=== PATIENT | male | born 1955 | race Caucasian/White ===

== ENCOUNTER 2017-08-23 12:02 | Emergency (ER) | payer OTHER ==
--- NOTE | 2017-08-23 13:50 | EDPHY ---
H & P Time Seen by Provider: 08/23/17 12:07 HPI/ROS: CHIEF COMPLAINT: Right hip pain History by patient HISTORY OF PRESENT ILLNESS: 61-year-old man with a history of multiple back surgeries and fusions presents complaining of several weeks of right hip pain. Patient describes the pain both in his right buttock as well as his anterior hip and it is worse when he tries to lie flat or extend his leg or weight bear. Pain got especially worse 5-6 days ago when he went for an MRI of his back and on his way in parking lot he developed really severe pain which is exacerbated by having a lot on the MRI table. Patient has been on long-term pain medicines control by his pain management physician but has tapered down to 3 Vicodin a day approximately 6-8 weeks ago prior to the onset of this severe right hip pain. He denies any specific trauma to the hip. He states he has not been any steroids for his back. REVIEW OF SYSTEMS: As in HPI, and all other systems reviewed and are negative Smoking Status: Former smoker Physical Exam: General Appearance: Alert and uncomfortable appearing. Eyes: Pupils equal and round no injection. Musculoskeletal: Neck is supple and nontender. Back: Multiple surgical scars, no bony tenderness, no back tenderness, positive mild right buttock tenderness, negative straight leg test Extremities: Right hip with limited range of motion secondary to pain especially with internal-external rotation both passively and actively, full range of motion of right knee and ankle, DP pulse 2 +and equal bilaterally. Skin: No rashes or lesions except as described above. Constitutional: Initial Vital Signs Temperature (C) 37 C 08/23/17 12:14 Heart Rate 105 H 08/23/17 12:14 Respiratory Rate 20 08/23/17 12:14 Blood Pressure 142/100 H 08/23/17 12:14 O2 Sat (%) 91 L 08/23/17 12:14 O2 Delivery Mode Room Air Allergies/Adverse Reactions: meperidine HCl [From Demerol] Allergy (Verified 08/23/17 12:11) Home Medications: Medication Instructions Recorded Atorvastatin Calcium 08/23/17 GABAPENTIN 08/23/17 Losartan Potassium 08/23/17 Ranitidine HCl 08/23/17 Spironolactone 08/23/17 Tamsulosin HCl 08/23/17 MDM/Departure - MDM Imaging: Discussed imaging studies w/ call center associate Radiologist ED Course/Re-evaluation: 61-year-old man presents with severe right hip pain. X-ray reveals right greater than left avascular necrosis per the radiologist. This clearly explained the patient's symptoms. I discussed the diagnosis with the patient and with Dr. Cochran sales and marketing professional for orthopedics. He will see the patient in follow-up next week. Patient was given orthopedics contact information and will schedule appointment next week. - Depart Disposition: Home, Routine, Self-Care Clinical Impression: Avascular necrosis of bones of both hips Condition: Fair Instructions: Hip Pain (ED) Additional Instructions: You were seen by Dr. Karyn Welch today. Please follow up with Dr. Cochran or his partner next week to be seen for your avascular necrosis of your right and also left hip. Continue to take her pain medicines as needed. Return for any worsening or new concerns. Referrals: Paola Mcdowell MD [Primary Care Provider] - As per Instructions
[2017-08-23 14:45] VITALS: BP 141/89; PULSE 78; RESP 18; TEMP 98.2; O2SAT 92
== END 2017-08-23 14:45 | disposition home or self-care (01) ==
LOC: CED 12:02
DX: M87.9 Osteonecrosis, unspecified (principal); Z87.891 Personal history of nicotine dependence
CPT/HCPCS: 73502-PO

== ENCOUNTER 2017-10-17 14:58 | Inpatient (IN) | payer OTHER ==
[2017-10-17] MEDS ORDERED: ALTEPLASE 100 MG/100 ML VIAL IV ONE ×2 (15:15→15:37)
[2017-10-17] MEDS ORDERED: NS 1,000 ML IV ONE (15:16)
[2017-10-17] MEDS ORDERED: IOPAMIDOL (ISOVUE 370) 100 ML BTL IV ONE (15:17)
--- NOTE | 2017-10-17 15:20 | CPEKG ---
Heart Rate: 134 RR Interval: 448 P-R Interval: 96 QRSD Interval: 88 QT Interval: 304 QTC Interval: 454 P Gilsum: 58 QRS Gilsum: 65 T Wave Gilsum: -1 EKG Severity - ABNORMAL ECG - EKG Impression: SINUS TACHYCARDIA EKG Impression: NONSPECIFIC T ABNORMALITIES, INFERIOR LEADS Electronically Signed By: Elidia Corona 18-Oct-2017 14:15:10
--- NOTE | 2017-10-17 15:21 | EDPHY ---
H & P Stated Complaint: c/o confusion since 1200 today HPI/ROS: HPI CHIEF COMPLAINT: Confusion, Left facial droop, Left sided weakness. Last Seen normal at noon. HISTORY OF PRESENT ILLNESS: This patient is 61-year-old male, he presents to the emergency room by private vehicle with his for confusion. She noticed this onset at noon today during a phone call he did not sound right on the phone. He was acting confused. They 1st call their primary care doctor recommended him coming to the emergency room. At 3:00 p.m. he checked in to [facility] emergency room where I greeted him. Upon arrival to the emergency room I did Greet him in the ER room 1. He is noted to be tachycardic but not hypertensive. He has slurred speech on exam. He has a left-sided facial droop. He keeps his left fist in a clenched fist. He appears to be weak on left side. Upon arrival medially I called a stroke alert. TIME OF CVA ALERT: 1501PM Spoke with Dr. Mckeon with [facility]. She recommends CT head without contrast and then most likely tPA if there is no bleed. After tPA will then proceed back for CT angiogram head and neck. Initial NIHSS: 11 Past Medical History: Hypertension, hyperlipidemia, GERD, obesity. Previous stroke left-sided weakness in 2013, seizure, COPD Past Surgical History: No recent surgery. Social History: Lives locally. at bedside. Denies drugs alcohol tobacco. Family History: Noncontributory. ROS REVIEW OF SYSTEMS: A comprehensive 10 point review of systems is otherwise negative aside from elements mentioned in the history of present illness. Exam Constitutional confused, triage nursing summary reviewed, vital signs reviewed , awake/alert. Eyes normal conjunctivae and sclera, EOMI, PERRLA. HENT normal inspection, atraumatic, moist mucus membranes, no epistaxis, neck supple/ no meningismus, no raccoon eyes. Respiratory clear to auscultation bilaterally, normal breath sounds, no respiratory distress, no wheezing. Cardiovascular Tachycardic, regular rhythm, no murmur, no edema, distal pulses normal. Gastrointestinal soft, non-tender, no rebound, no guarding, normal bowel sounds, no distension, no pulsatile mass. Genitourinary no CVA tenderness. Musculoskeletal no midline vertebral tenderness, full range of motion, no calf swelling, no tenderness of extremities, no meningismus, good pulses, neurovascularly intact. Skin pink, warm, & dry, no rash, skin atraumatic. Neurologic awake, alert and oriented x 1, AAOx1, patient has a left-sided lower facial droop, additionally is confused and disoriented, additionally has left-sided upper extremity left lower extremity weakness, significant drift and drops to the bed. Also has left hand is clinched. He has dysarthria present. Otherwise cranial nerves are intact. He is not aphasic. He follows commands but needs repetitive questioning. Psychiatric normal mood/affect. Heme/Lymph/Immune no lymphadenopathy. Differential Diagnosis: Includes but is not limited to in a particular order acute stroke, ischemic stroke, hemorrhagic stroke, acute coronary syndrome, electrolyte disturbance, infection. Medical Decision Making: Stroke alert was called immediately when he arrived. [facility] Dr. Mckeon was consulted. Recommend CT head without and then tPA if no bleed. And then subsequent CT angiogram head and neck. Re-evaluation: 1505: I discussed this with at bedside about risk versus benefit of tPA. She is in agreement that we should give tPA. She understands the risks of doing so. 1525: Patient in CT Initial NIH stroke scale 11. Left-sided drift, dysarthria, facial droop, left sided weakness. 1550: Patient is back from CT. CT head without contrast shows no bleed. Will proceed with tPA. 1553: TPA as been ordered. Maximum dose patient weighs 134 kg. 9 mg bolus an 81 mg of Infusion. EKG interpretation by me on record in [facility] system. Impression time of EKG 15 19, sinus tachycardia rate of 134. I do not appreciate acute ST elevation. 1549: Patient's creatinine back 1.6. I did speak with Dr. Mckeon with [facility]. Still recommends CT angiogram head and neck. Will proceed with angiogram head and neck and hydrate with IV fluids. ED x-ray chest one view: Poor inspiratory effort. But no acute cardiopulmonary disease visualize. CT head without contrast called to me by Dr. Thor Tavera. Negative for bleed or Infarct. 1603: Spoke with Dr. Mcguire, who is the hospitalist on-call at this time. Accepts admission to the ICU at [facility]. 1604: This patient will need to be transferred by critical care status post tPA. Ground transportation is very prolonged wait over an hour. I will fly him by helicopter to [facility] ICU. 1615: Patient is back from CT angiogram head and neck with contrast. Patient currently getting tPA. Additionally helicopter has landed and will in short load him to be transferred to [facility] ICU. 1622: Patient seems to be doing slightly better with tPA. He is more alert and responsive. He still has left-sided weakness and left-sided facial droop. CT angiogram head and neck with contrast called to me by Dr. Robb Tavera negative for acute large vessel occlusion. Critical Care: Total Critical Care Time Spent Managing this Patient: 85 Minutes. This time was spent Exclusively with this patient. This Care was exclusive of procedures. The Organ System/life at risk was acute stroke. Neurological. This Patient was in Critical Condition because acute ischemic stroke with neurological dysfunction including left-sided weakness. Facial droop. Dysarthria. 1 Source: Patient, Family - Personal History Current Tetanus Diphtheria and Acellular Pertussis (TDAP): Yes - Medical/Surgical History Hx Asthma: No Hx Chronic Respiratory Disease: Yes Hx Diabetes: No Hx Cardiac Disease: No Hx Renal Disease: No Hx Cirrhosis: No Hx Alcoholism: No Hx HIV/AIDS: No Hx Splenectomy or Spleen Trauma: No Other PMH: CVA w left sided weakness in 06/2013. seizure hx. back surgery. tonsils. htn, gerd, hyperlipidemia, BPH - Social History Smoking Status: Former smoker Constitutional: Initial Vital Signs Temperature (C) 37.2 C 10/17/17 15:06 Heart Rate 120 H 10/17/17 15:06 Respiratory Rate 20 10/17/17 15:06 Blood Pressure 120/86 H 10/17/17 15:06 O2 Sat (%) 96 10/17/17 15:06 O2 Delivery Mode Room Air O2 (L/minute) 2 Allergies/Adverse Reactions: meperidine HCl [From Demerol] Allergy (Verified 08/23/17 12:11) Home Medications: Medication Instructions Recorded Albuterol Hfa Anes Only [Proair 2 puffs IH QID PRN 10/17/17 Hfa Icu (*)] Gabapentin [Neurontin 300 MG (*)] 300 mg PO TID 10/17/17 Ipratropium/Albuterol [Duoneb (*)] 3 ml IH QID PRN 10/17/17 Metoprolol Tartrate [Lopressor 50 50 mg PO BID 10/17/17 mg (*)] Nitroglycerin [Nitrostat 0.4 mg 0.4 mg SL Q5M PRN 10/17/17 (*)] OLANZapine [Zyprexa] 2.5 - 5 mg PO HS 10/17/17 Omeprazole [Prilosec 20 mg] 20 mg PO DAILY 10/17/17 Tamsulosin HCl [Flomax 0.4 MG (*)] 0.8 mg PO DAILY 10/17/17 Tiotropium Inhaler [Spiriva 18 mcg IH DAILY 10/17/17 Handihaler] Venlafaxine Xr [Effexor Xr 75MG 225 mg PO DAILY 10/17/17 (*)] Aspirin EC [Aspirin EC 81 mg (*)] 81 mg PO DAILY #30 tab 10/19/17 Atorvastatin Calcium [Lipitor 40 40 mg PO HS #30 tab 10/19/17 mg (*)] amLODIPine BESYLATE [Norvasc 5 mg 5 mg PO DAILY #30 tab 10/19/17 (*)] Medical Decision Making - Data Points Laboratory Results: Laboratory Results 10/17/17 15:15 10/17/17 15:15 Medications Given: Acetaminophen (Tylenol) 650 mg PO Q4HRS PRN PRN Reason: Pain, Mild/Fever, Can Take PO Stop: 04/15/18 20:40 Last Admin: 10/17/17 20:49 Dose: 650 mg Albuterol/Ipratropium (Duoneb) 3 ml IH QID PRN PRN Reason: Short of Breath/Dyspnea Stop: 04/15/18 19:34 Last Admin: 10/17/17 22:11 Dose: 3 ml Aspirin Buffered (Aspirin Ec) 81 mg PO DAILY [facility] Stop: 04/17/18 08:59 Last Admin: 10/19/17 08:27 Dose: 81 mg Atorvastatin Calcium (Lipitor) 40 mg PO HS [facility] Stop: 04/16/18 20:59 Last Admin: 10/18/17 21:15 Dose: 40 mg Gabapentin (Neurontin) 300 mg PO TID [facility] Stop: 04/15/18 21:59 Last Admin: 10/19/17 08:27 Dose: 300 mg Losartan Potassium (Cozaar) 50 mg PO DAILY [facility] Stop: 04/16/18 08:59 Last Admin: 10/18/17 09:14 Dose: Not Given Metoprolol Tartrate (Lopressor) 50 mg PO BID [facility] Stop: 04/16/18 20:59 Last Admin: 10/19/17 08:27 Dose: 50 mg Olanzapine (Olanzapine) 2.5 - 5 mg PO HS [facility] Stop: 04/16/18 09:14 Last Admin: 10/18/17 21:15 Dose: 5 mg Oxycodone HCl (Oxycodone Ir) 5 mg PO Q6HRS PRN PRN Reason: Pain, Severe Able to Take PO Stop: 10/27/17 22:31 Last Admin: 10/18/17 15:46 Dose: 5 mg Pantoprazole Sodium (Protonix) 40 mg PO DAILY [facility] Stop: 04/16/18 08:59 Last Admin: 10/19/17 08:27 Dose: 40 mg Tamsulosin HCl (Flomax) 0.8 mg PO DAILY [facility] Stop: 04/16/18 08:59 Last Admin: 10/19/17 08:27 Dose: 0.8 mg Venlafaxine HCl (Effexor Xr) 225 mg PO DAILY [facility] Stop: 04/16/18 08:59 Last Admin: 10/19/17 08:27 Dose: 225 mg Discontinued Medications Alteplase, Recombinant (Activase) 81 mg IV ONCE ONE PRN Reason: Protocol Stop: 10/17/17 15:38 Last Admin: 10/17/17 15:53 Dose: 81 mg Alteplase, Recombinant (Activase) 9 mg IV ONCE ONE PRN Reason: Protocol Stop: 10/17/17 15:38 Last Admin: 10/17/17 15:56 Dose: Not Given Atorvastatin Calcium (Lipitor) 20 mg PO HS [facility] Stop: 04/15/18 20:59 Last Admin: 10/17/17 20:50 Dose: 20 mg Sodium Chloride (Ns) 1,000 mls @ 0 mls/hr IV EDNOW ONE; Wide Open PRN Reason: Protocol Stop: 10/17/17 15:17 Last Admin: 10/17/17 15:55 Dose: 1,000 mls Sodium Chloride (Ns) 1,000 mls @ 100 mls/hr IV CONT [facility] Stop: 04/15/18 20:14 Last Admin: 10/17/17 20:30 Dose: 1,000 mls Olanzapine (Olanzapine) 2.5 - 5 mg PO DAILY [facility] Stop: 04/16/18 09:14 Last Admin: 10/18/17 09:34 Dose: Not Given Tiotropium Whipple (Spiriva Handihaler) 18 mcg IH DAILY [facility] Stop: 04/16/18 08:59 Last Admin: 10/18/17 08:35 Dose: Not Given Tiotropium Whipple (Spiriva Handihaler) 18 mcg IH DAILY [facility] Stop: 04/16/18 09:29 Last Admin: 10/18/17 09:29 Dose: 1 cap Departure - Departure Disposition: [facility] Acute Clinical Impression: Acute ischemic stroke Condition: Fair
[2017-10-17 15:25] LABS: % IMMATURE GRANULYOCYTES 0.6 % (0.0-1.1); ABSOLUTE IMMATURE GRANULOCYTES 0.08 10^3/uL (0.00-0.10); ADD DIFF? NO; ADD MORPH? NO; ADD SCAN? NO; ATYPICAL LYMPHOCYTE FLAG 0 (0-99); FRAGMENT RBC FLAG 0 (0-99); HEMATOCRIT 41.6 % (40.0-51.0); HEMOGLOBIN 13.7 g/dL (13.7-17.5); LEFT SHIFT FLG 20 (0-99); LIPEMIA HEMOLYSIS FLAG 80 (0-99); MEAN CELL HEMOGLOBIN CONCENTR. 32.9 g/dL (32.4-36.7); MEAN CELL VOLUME 88.1 fL (81.5-99.8); MEAN PLATELET VOLUME 9.9 fL (8.7-11.7); PLATELET CLUMPS FLAG 10 (0-99); PLATELET COUNT 263 10^3/uL (150-400); RED BLOOD CELL COUNT 4.72 10^6/uL (4.40-6.38); RED CELL DISTRIBUTION WIDTH 14.2 % (11.5-15.2)
[2017-10-17 15:36] LABS: INR 0.94 (0.83-1.16); PROTIME(PATIENT) 12.5 SEC (12.0-15.0)
[2017-10-17 15:37] LABS: APTT 35.3 SEC (23.0-38.0)
[2017-10-17] MEDS ORDERED: ALTEPLASE 1 MG/ML SYR IV ONE (15:37)
[2017-10-17 15:41] LABS: ALBUMIN 3.4 g/dL (3.5-5.0); BILIRUBIN,TOTAL 0.6 mg/dL (0.1-1.4); BILIRUBIN-CONJUGATED 0.3 mg/dL (0.0-0.5); BILIRUBIN-UNCONJUGATED 0.3 mg/dL (0.0-1.1); CALCIUM 8.9 mg/dL (8.5-10.4); CREATININE 1.6 mg/dL (0.7-1.3); MAGNESIUM 2.1 mg/dL (1.6-2.3); POTASSIUM 4.7 mEq/L (3.5-5.2); TOTAL PROTEIN 6.5 g/dL (6.3-8.2)
[2017-10-17 15:51] LABS: TROPONIN I 0.022 ng/mL (0.000-0.034)
[2017-10-17] MEDS ORDERED: IPRATROPIUM/ALBUTEROL 3 ML DEYVIAL IH PRN (19:35)
[2017-10-17] MEDS ORDERED: ALBUTEROL 200 PUFFS/18 GM MDI IH PRN (19:35)
[2017-10-17] MEDS ORDERED: NS 1,000 ML IV SCH (20:15)
--- NOTE | 2017-10-17 20:18 | GHP ---
[f rep st] HISTORY AND PHYSICAL DATE OF ADMISSION: 10/17/2017 CHIEF COMPLAINT: Clenched left hand, numbness, and immobility of the left face. HISTORY OF PRESENT ILLNESS: A 61-year-old male with a history of hypertension and hyperlipidemia and a similar episode a few years ago who presents with sudden onset of confusion, left facial droop, left-sided weakness and a clenched fist on the left. The patient was brought to the emergency department by his . Was consulted by [facility] and thought safe for the use of tPA. Patient was treated with tPA in the [facility] ED [facility]. In the ICU upon arrival, after emergency transport the patient's speech is notably unusual with inappropriate pronunciation of words, although no word- finding difficulties. The facial droop and left-sided weakness has nearly completely resolved. The patient describes persistent intermittent palpitations that he was experiencing at the beginning of his episode as well. His clenched left fist has relaxed. Patient is reporting some chest pain from hitting his chest while he was at work today. He believes against either a desk or a chair from a seated position. Denies any shortness of breath. Denies any abdominal discomfort. Denies any lower extremity edema or pain. PAST MEDICAL HISTORY: 1. Hypertension. 2. Hyperlipidemia. 3. GERD. 4. Obesity. 5. History of a suspected previous stroke with similar symptoms in 2012. 6. Suspected seizure. The patient was initiated on seizure medications in 2012 , which he has since self discontinued in the last 2 years. 7. COPD. 8. Depression/anxiety. SOCIAL HISTORY: Patient lives with his . Is retired. 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 Previous tobacco exposure. None currently. No alcohol. No illicit drugs or marijuana. FAMILY HISTORY: Positive for stroke. REVIEW OF SYSTEMS: A 10-point review of systems is negative with the exception of that reported in the HPI. ADVANCED DIRECTIVES: Patient is full cor, full tube. His would be his medical decision maker. PHYSICAL EXAMINATION: VITAL SIGNS: Blood pressure 115/68, heart rate 116, ranging from not to the 120s respiratory rate 18, 92% on room air, 36.9. GENERAL: This is a middle-aged, obese male, sitting up in bed in no acute distress. HEENT: Notable for dry mucous membranes. Eye exam is negative for any icterus. CARDIAC: Patient is tachycardic but regular. A systolic murmur is appreciated best at the left sternal border. PULMONARY: Has limited respiratory effort, but is clear to auscultation bilaterally. GASTROINTESTINAL : Abdomen is obese. Positive bowel sounds. Abdomen soft and nontender. MUSCULOSKELETAL: Negative for any lower extremity edema. SKIN: Negative for any rashes. NEUROLOGIC: Patient still has sensory deficits on the left side of his face with some but not complete left facial droop. Again, there is dysarthria with mispronunciation of the T sound. Patient is managing his secretions. Gait was not assessed. Strength is 5/5 bilaterally of the upper and lower extremities. DATA: White count 13.12, hematocrit 42, platelets 263, creatinine is 1.6. D- dimer 0.85. Glucose 130. Liver function tests are normal. Sodium 139. Noncontrast CT of the head that I personally reviewed and interpreted shows no acute stroke. EKG, which I personally reviewed and interpreted, shows sinus rhythm, normal axes, normal intervals, with a tachycardic rate in the 130s. ASSESSMENT AND PLAN: This is a 61-year-old male, presenting with acute stroke. 1. Acute stroke. Patient received tissue plasminogen activator at the [facility] emergency department and was transferred over for ongoing care. His deficits do appear to be improving status post tissue plasminogen activator. Will continue his monitoring in the Intensive Care Unit. We have ordered a CTA of the head and neck as well as a transthoracic echocardiogram tomorrow after tPA window brain imaging can be obtained. I have ordered a hemoglobin A1c, lipids, and have consulted Neurology to see the patient in the afternoon. Will not give any aspirin or other antiplatelet agents in the setting of the tissue plasminogen activator window. The patient's blood pressure is adequately controlled currently. Will reconcile his home medications and continue. 2. Hypertension. Patient's blood pressures are perfectly controlled currently. Will continue these. Will hold the patient's beta-marnie this evening as I do not think his blood pressures would appropriately tolerate any antihypertensives at this time. If his blood pressures creep back up then we will reinitiate that beta marnie as well. Prophylaxis contraindicated in the setting of the acute tPA window. 3. Hyperlipidemia. We will continue his statin dosing and check lipids in the morning. 4. MIGUELITO - slightly elevated creatinine in setting of acute presentation likely pre-renal - must be monitored as received contrast in ED for CTA. 5. Chronic obstructive pulmonary disease. The patient is currently on room air. Will continue his inhaled medications. Has no indication for acute exacerbation at this time. DIET: Once cleared by Speech Therapy, can have a cardiac diet. DISPOSITION: I expect him greater than 2 midnights. The patient requires ongoing tPA monitoring as well as additional diagnostics and neurologic consultation. I have discussed the case with the emergency room physician. Patient is being triaged to the ICU for care. /[id number]/MODL MTDD
[2017-10-17] MEDS ORDERED: ACETAMINOPHEN 325 MG TAB PO PRN (20:41)
--- NOTE | 2017-10-17 20:43 | PDMN ---
Medical Necessity Medical necessity: C/M review: Patient meets INPT criteria under [facility] M-83 Stroke: ischemic; Acute stroke, acute and persistent confusion, left facial droop, left sided weakness, clenched left fist, numbness, left facial immobility , requiring emergent IV tPA, planned Neurology consult, Rehab eval consult, echocardiogram, ongoing NPO until cleared by ST, IV fluids, frequent neuro checks, cardiac monitoring, pulse oximetry, acute inpt PT/OT/ST, comorbid hypertension, hyperlipidemia, COPD, GERD, obesity, depression / anxiety, history of suspected previous stroke with similar symptoms in 2012, suspected seizure - patient initiated on seizure meds in 2012, meds self discontinued by patient in last two years. anticipates > 2 MN LOS for ongoing med nec for eval and TX of above.
[2017-10-17] MEDS: GABAPENTIN 300 MG CAP PO SCH (20:50)
[2017-10-17] MEDS ORDERED: ATORVASTATIN CALCIUM 20 MG TAB PO SCH (21:00)
[2017-10-17] MEDS: oxyCODONE IR 5 MG TAB PO PRN (22:42)
[2017-10-18 06:46] LABS: ALANINE AMINOTRANSFERASE 41 IU/L (21-72); ALBUMIN 3.2 g/dL (3.5-5.0); ALKALINE PHOSPHATASE 88 IU/L (38-126); ANION GAP 7 mEq/L (8-16); ASPARTATE AMINOTRANSFERASE 30 IU/L (17-59); BILIRUBIN,TOTAL 0.5 mg/dL (0.1-1.4); CALCIUM 8.5 mg/dL (8.5-10.4); CARBON DIOXIDE 27 mEq/l (22-31); CHLORIDE 106 mEq/L (97-110); CHOLESTEROL 161 mg/dL (140-220); CHOLESTEROL/HDL RATIO 3.83 RATIO (1.00-4.97); CREATININE 1.4 mg/dL (0.7-1.3); GLOMERULAR FILTRATION RATE 52; GLUCOSE 98 mg/dL (70-100); HIGH DENSITY LIPOPROTEIN 42 mg/dL (40-65); LDL/HDL RATIO 2.29 RATIO (1.00-3.64); LOW DENSITY LIPOPROTEIN 96 mg/dL (80-100); NON-HIGH DENSITY LIPOPROTEIN 119 mg/dL (90-129); SODIUM 140 mEq/L (134-144); TRIGLYCERIDE 115 mg/dL (40-150); VERY LOW DENSITY LIPOPROTEINS 23 mg/dL (8-25)
[2017-10-18] MEDS: VENLAFAXINE XR 75 MG CAP PO SCH (07:56)
[2017-10-18] MEDS: TAMSULOSIN HCL 0.4 MG CAP PO SCH (07:57)
[2017-10-18] MEDS: GABAPENTIN 300 MG CAP PO SCH ×3 (07:57→21:14)
[2017-10-18] MEDS: PANTOPRAZOLE SODIUM 40 MG TAB PO SCH (07:57)
[2017-10-18] MEDS ORDERED: LOSARTAN POTASSIUM 50 MG TAB PO SCH (09:00)
[2017-10-18] MEDS ORDERED: TIOTROPIUM INHALER 18 MCG/DOSE 5 DOSE/MDI IH SCH ×2 (09:00→09:30)
[2017-10-18] MEDS ORDERED: SPIRONOLACTONE 25 MG TAB PO SCH (09:15)
[2017-10-18] MEDS ORDERED: OLANZapine 5 MG TAB PO SCH ×2 (09:15→21:00)
[2017-10-18] MEDS: oxyCODONE IR 5 MG TAB PO PRN ×2 (09:28→15:46)
[2017-10-18] MEDS ORDERED: SODIUM CL NASAL GEL 14.1 GM TUBE TP PRN (10:06)
--- NOTE | 2017-10-18 11:28 | ECHO ---
[email or web address] [address] Main: [phone] Fax: [email or web address] Echocardiogram Name: SYLVIA PATTERSON MR#: [id number] Study Date: 10/18/2017 Study Time: 09:44 AM Date of : 1955 Age: 61 year(s) Height: 188 cm (74 in.) Weight: 133.81 kg (295 lb.) BSA: 2.56 m2 Gender: Male Examination: Echo Indication: TIA, Obesity Image Quality: Contrast: Requested by: Laura Mcguire BP: 124 mmHg/84 mmHg Heart Rate: Rhythm: Indication: TIA, Obesity Procedure Staff Acid Tester: Umang Edouard Reading Physician: Danilo Munoz Requesting Provider: Conclusions: Mild concentric LV hypertrophy. Global hypercontractility of the left ventricle. EF is 76 %. Normal RV function. Moderate aortic cusp calcification is present. No aortic valve stenosis is present. Measurements: Chambers Valvular Assessment AV/MV Valvular Assessment TV/PV Normal Normal Normal Name Value Range Name Value Range Name Value Range Ao Paty (MM): 2.6 cm (2.2 cm-3.7 AV Vmax: 2.27 m/s (1 m/s-1.7 PV Vmax: 1.05 m/s (0.6 m/s-0.9 cm) m/s) m/s) IVSd (2D): 1.0 cm (0.6 cm-1.1 AV maxP mmHg ( - ) PV PGmax: 4 mmHg ( - ) cm) AV meanP mmHg ( - ) LVDd (2D): 4.6 cm (4.2 cm-5.9 TAMMIE (VTI): 1.7 cm ( - ) cm) MV E Vmax: 0.65 m/s ( - ) LVDs (2D): 2.5 cm (2.1 cm-4 MV A Vmax: 0.99 m/s ( - ) cm) MV E/A: 0.66 ( - ) LVPWd (2D): 1.2 cm (0.6 cm-1 cm) LVOTd 2.2 cm 2.2 cm mm LVEF (2D): 76 (>=54 %) Continued Measurements: Chambers Valvular Assessment AV/MV Name Value Name Value LADs Lon.8 cm MV E' Septal: 0.06 m/s LA Area: 17.3 cm2 MV E/E' Septal: 11.10 Patient: SYLVIA PATTERSON Study Date: 10/18/2017 Page 1 of 2 09:44 AM LA Volume: 61 ml MV E/E' Lateral: 10.70 LA Volume Index: 23.8 ml/m2 AR Vmax: 0.05 cm/s Findings: Left Ventricle: Normal size left ventricle. Mild concentric LV hypertrophy. Global hypercontractility of the left ventricle. EF is 76 %. No regional wall motion abnormality. Diastolic dysfunction is present. . Right Ventricle: Normal size right ventricle. Normal RV function. Left Atrium: The left atrium is normal in size. Right Atrium: The right atrium is normal in size. Mitral Valve: The mitral valve is normal in appearance and function. There is no mitral valve regurgitation. Aortic Valve: Moderate aortic cusp calcification is present. No aortic valve stenosis is present. Tricuspid Valve: The tricuspid valve appears normal. Pulmonic Valve: Pulmonary valve not visualized. Aorta: The aorta is normal. Pericardium: No pericardial effusion. (No Signature Object) Patient: SYLVIA PATTERSON Study Date: 10/18/2017 Page 2 of 2 09:44 AM [id number]
--- NOTE | 2017-10-18 12:57 | NEUROPROG ---
Assessment: HOSPITAL NEUROLOGY CONSULT REQUESTING: Laura Mcguire MD REASON: stroke alert s/p tPA HPI: 61 yo man with a history of chronic pain, anxiety/depression, obesity, HTN, HLD presented to our facility 10/17 as a stroke alert. Patient apparently developed symptoms on day of presentation on his way home from work. He developed disorientation and speech problems. His was at home at noted these problems as well. She describes that he was "speaking like a child." The left side of his face was also not moving as well, and she notes it seemed like the lower lip was protruding on the left. They took him to [facility] and he was activated as a stroke alert. In addition to the aforementioned signs/symptoms, they found his left hand was clenched in a fist and the rest of the arm would not move. [facility] telestroke service was consulted and recommended tPA after his head CT returned without any acute findings. Subsequent CTA head/neck showed patent vessels. tPA bolus was administered at 1515. He was transferred to our ICU. He remains symptomatic despite tPA. Family also relays a history of many years of "seizures." He had been evaluated in the past for this with normal MRI and EEG per [facility]. He was placed on an antiseizure medication per family report but he stopped this on his own. They describes two types of "seizures." One will be eyelid fluttering and facial drooping occurring in a start-stop nature, sometimes starting/stopping with independent symptoms and all with preserved awareness. Another is "full blown" where he will fall to the ground and nonsynchronously flail his limbs with eyes closed then emerge from this back to baseline. They also report he has had "strokes" in the past where he speaks like a child and will clench a fist. ROS: As per the HPI, otherwise a complete 12 point ROS was performed and is negative ALLERGIES AND MEDS: As recorded in the EMR - reviewed and reconciled PFSH: As per the intake H&P by Dr. Mcguire from yesterday EXAM: VS reviewed in EMR GEN: obese man laying in NAD HEENT: NCAT, sclera anicteric, conjunctiva not injected, MMM, oropharynx clear, no scalp tenderness NECK: supple, nontender, no meningismus CV: RRR s1 s2 wo m/r/c/g. Carotid pulses 2+ wo bruit NEURO: MS: awake, alert, oriented to all spheres. Speech is child-like and non- organic in nature. No language disturbance - he can repeat, name, read, comprehend - writing not tested. Follows commands. Attends to both sides. Recent/remote memory grossly intact. Mood anxious with very odd affect. Adequate fund of knowledge. Poor insight. CN: pupils 4mm round and reactive. Intolerant of fundoscopy. VFF. Primary gaze centered. Full ocular motility, though odd jerking movement of the eyes on smooth pursuit. Facial sensation preserved. He intermittently pulls the left lower lip down, which is distractible. Hearing grossly intact to finger rub. Palatoglossal movements intact. Shoulder shrug intact. He gives way on testing when he turns head to left MOTOR: normal bulk. Normal tone. Give-way weakness and submax effort in all groups in the LUE and LLE. He has some odd/complex movements when arms are outstretched. LUE drifts without pronation. SENSORY: endorses subjective diminished sensation in LUE/LLE. No extinction. COORD: no ataxia FN/HS. Zina odd/robotic in LUE. REFLEX: plantars down. No clonus. DTRS 2/4, though at times when testing left DTRs he has an exaggerated response . GAIT: deferred DATA REVIEW: Labs reviewed in EMR PERSONALLY INTERPRETED RESULTS AND DATA: CT head wo - no acute findings, small curvilinear hypodensity in the left cerebellar hemisphere with appearance of wide sulcus vs. venous CTA head/neck - patent vessels IMPRESSION AND RECOMMENDATIONS: // CONVERSION DISORDER Patients exam is floridly nonorganic. Child-like speech, give-way weakness turning head to left (which actually involved right SCM), odd/robotic movements , LUE drift without pronation, intermittent pulling down of the left lower lip of distractible nature (which is clearly volitional), exaggerated reflex response are all non-organic. Further, description of mixed positive/negative symptoms at the same time would argue against a stroke. The history of "seizures" are also non-organic based on description (nonsynchronous flailing with eyes closed, mixed positive/negative facial symptoms of start-stop nature with preserved awareness). Risk factors for conversion include his prior diagnosis of anxiety/depression and chronic pain. When we discussed this diagnosis, he went into an unprovoked tirade about how his doctors took him off pain medication - no mention of his pain was made. He apparently states he was told he was taken off narcotics because his pain was a manifestation of anxiety/depression. He states he was put on "happy pills" but stopped them right away. I provided reassurance that this was not a primary neurologic issue, and let him know these episodes can be helped with the right outpatient interventions. - would continue post-tPA protocol - [address] scheduled today at 1600 - if repeat CT head is unchanged, he can be discharged - no further neurologic interventions/diagnostics after tPA protocol complete - discussed how he will need followup with psychiatry and cognitive behavioral therapy - followup with PCP as well - will sign off. Please recall PRN Objective: Vital Signs Temp Pulse Resp BP Pulse Ox 36.7 C 106 H 17 139/77 H 94 10/18/17 12:00 10/18/17 12:00 10/18/17 12:00 10/18/17 12:00 10/18/17 12:00 Laboratory Results 10/18/17 06:15 10/17/17 10/18/17 10/19/17 05:59 05:59 05:59 Intake Total 2298 Output Total 2400 1050 Balance -102 -1050 PT 12.5 SEC (12.0-15.0) 10/17/17 15:15 INR 0.94 (0.83-1.16) 10/17/17 15:15 Allergies/Adverse Reactions: meperidine HCl [From Demerol] Allergy (Verified 08/23/17 12:11)
--- NOTE | 2017-10-18 14:27 | ASMTCMCOM ---
CM Note CM Note Notes: Chart reviewed. Patient discussed in rounds this am. 61 year old male with s&s of stroke to [facility] where he received TPA. His symptoms have improved. Normally lives at home with family. Complex medical history. He was seen by neurology and was told symptoms may be resultant of stress. He and his are upset. I spent 20 minutes discussing fears and concerns with them. They are agreeable to stay and finish testing at this point. He asks for medication for back pain so he can rest prior to testing. CM availble should further needs arise. Date Signed: 10/18/2017 02:27 PM Electronically Signed By:Richa Conner RN
[2017-10-18] MEDS ORDERED: LORazepam 0.5 MG TAB PO PRN (14:29)
[2017-10-18] MEDS ORDERED: IPRATROPIUM 0.06% NASAL SPRAY EACHNARE SCH (16:00)
--- NOTE | 2017-10-18 16:41 | HOSPPROG ---
Hospitalist Progress Note Assessment/Plan: * Possible CVA - s/p tpa -repeat heat CT pending at 24 hours post tpa * Suspected conversion disorder -per Dr. Arias - neurology exam is non-organic and not c/w CVA -offered patient MRI for confirmation - refused due to anxiety and inability to tolerate -PT/OT when able to get OOB 24 hours after tpa infusion * Tachycardia - ? beta-marnie withdrawal vs. agitation -resume metoprolol and monitor * Possible seizure disorder - neurology suspects pseudoseizures * COPD with chronic respiratory failure - 2L at home * CKD - at baseline -hold losartan and spironolactone * Hyperlipidemia -increase lipitor goal LDL < 70 * Obesity BMI 38 Subjective: Angry after neurology visit today. Objective: Vital Signs Temp Pulse Resp BP Pulse Ox 36.7 C 108 H 18 145/80 H 93 10/18/17 12:00 10/18/17 16:00 10/18/17 16:00 10/18/17 16:00 10/18/17 16:00 Laboratory Results 10/18/17 06:15 10/17/17 10/18/17 10/19/17 05:59 05:59 05:59 Intake Total 2298 Output Total 2400 2000 Balance -102 -2000 PT 12.5 SEC (12.0-15.0) 10/17/17 15:15 INR 0.94 (0.83-1.16) 10/17/17 15:15 d/w Dr. Kirkland ICU rounds - neurology eval noted tele - sinus tachycardia ECHO - normal EF - Physical Exam Constitutional: no apparent distress, appears nourished, not in pain Cardiovascular: regular rate and rhythym, no murmur, rub, or gallop Respiratory: no respiratory distress, no rales or rhonchi, clear to auscultation Gastrointestinal: normoactive bowel sounds, soft, non-tender abdomen, no palpable masses Skin: no rashes or abrasions, no fluctuance, no induration Neurologic: AAOx3, other (twitching muscles randomly in bed) Psychiatric: anxious, agitated (angry, yelling), No interacting appropriately, No encephalopathic, No poor insight, No poor judgement, No poor memory ICD10 Worksheet Patient Problems: Problems Problem Status Onset Acute ischemic stroke Acute
[2017-10-18] MEDS ORDERED: ATORVASTATIN CALCIUM 40 MG TAB PO SCH (21:00)
[2017-10-18] MEDS ORDERED: OXYMETAZOLINE 30 ML NASAL SPRAY EACHNARE SCH (21:00)
[2017-10-18] MEDS: METOPROLOL TARTRATE 50 MG TAB PO SCH (21:15)
[2017-10-19 05:10] LABS: % IMMATURE GRANULYOCYTES 0.7 % (0.0-1.1); ABSOLUTE IMMATURE GRANULOCYTES 0.06 10^3/uL (0.00-0.10); ADD DIFF? NO; ADD MORPH? NO; ADD SCAN? NO; ATYPICAL LYMPHOCYTE FLAG 20 (0-99); FRAGMENT RBC FLAG 0 (0-99); HEMATOCRIT 46.3 % (40.0-51.0); LEFT SHIFT FLG 10 (0-99); LIPEMIA HEMOLYSIS FLAG 80 (0-99); MEAN CELL HEMOGLOBIN 29.9 pg (27.9-34.1); MEAN CELL HEMOGLOBIN CONCENTR. 32.4 g/dL (32.4-36.7); MEAN CELL VOLUME 92.4 fL (81.5-99.8); MEAN PLATELET VOLUME 9.9 fL (8.7-11.7); PLATELET CLUMPS FLAG 0 (0-99); PLATELET COUNT 235 10^3/uL (150-400); RED BLOOD CELL COUNT 5.01 10^6/uL (4.40-6.38); RED CELL DISTRIBUTION WIDTH 14.2 % (11.5-15.2)
[2017-10-19 05:34] LABS: ANION GAP 13 mEq/L (8-16); CALCIUM 9.3 mg/dL (8.5-10.4); CARBON DIOXIDE 29 mEq/l (22-31); CHLORIDE 101 mEq/L (97-110); CREATININE 1.4 mg/dL (0.7-1.3); GLOMERULAR FILTRATION RATE 52; GLUCOSE 100 mg/dL (70-100); SODIUM 143 mEq/L (134-144)
[2017-10-19 07:45] VITALS: RESP 15; TEMP 97.4; O2SAT 92
[2017-10-19] MEDS: TAMSULOSIN HCL 0.4 MG CAP PO SCH (08:27)
[2017-10-19] MEDS: METOPROLOL TARTRATE 50 MG TAB PO SCH (08:27)
[2017-10-19] MEDS: GABAPENTIN 300 MG CAP PO SCH (08:27)
[2017-10-19] MEDS: PANTOPRAZOLE SODIUM 40 MG TAB PO SCH (08:27)
[2017-10-19] MEDS: VENLAFAXINE XR 75 MG CAP PO SCH (08:27)
[2017-10-19 08:28] VITALS: BP 136/80; PULSE 95
[2017-10-19] MEDS ORDERED: ASPIRIN EC 81 MG TAB PO SCH (09:00)
[2017-10-19] MEDS ORDERED: PNEUMOCOCCAL 0.5ML VACCINE VIAL IM ONE (11:57)
--- NOTE | 2017-10-19 16:06 | ASDISCHSUM ---
Discharge Information Plan Status:Home with No Needs Medically Cleared to Leave:10/18/2017 Discharge Date:10/19/2017 01:54 PM CM D/C Disposition:Home, Routine, Self-Care ADT D/C Disposition:Home, Routine, Self-Care Projected Discharge Date:10/19/2017 05:00 PM Transportation at D/C:Family Discharge Delay Reason: Follow-Up Date:10/19/2017 05:00 PM Discharge Slot: Final Diagnosis:Possible CVA, Conversion diso Placement Information Patient Contact Information Contact Name:ОЛЬГА Relationship: Address:[address] [place] [address] City:[place] Alternate Phone: [facility]/Zip Code:[place] [address] Email: Financial Information Financial Class:HMO and PPO Plans Primary Plan Desc:[facility] P[facility] HMO Primary Plan Number:[id number] Secondary Plan Desc: Secondary Plan Number: Assessment Information [facility] CM Progress Note CM Note CM Note Notes: Chart reviewed. Patient discussed in rounds this am. 61 year old male with s&s of stroke to [facility] where he received TPA. His symptoms have improved. Normally lives at home with family. Complex medical history. He was seen by neurology and was told symptoms may be resultant of stress. He and his are upset. I spent 20 minutes discussing fears and concerns with them. They are agreeable to stay and finish testing at this point. He asks for medication for back pain so he can rest prior to testing. CM availble should further needs arise. Date Signed: 10/18/2017 02:27 PM Electronically Signed By:Richa Conner RN Case Management Discharge Plan Note Case Management Discharge Discharge Order Complete? Answers: Yes Patient to Obtain Answers: via Family Medications Transportation Arranged Answers: Family/Friends Transport will Pick (Date 10/19/2017 05:00 PM & Time) Family Notified Answers: Yes Notes: present Discharge Comments Notes: Patient has been discharged. No needs/PT. OT would have like to have had a safety home eval, but w/o PT, HC can not be ordered. reported to OT that patient close to baseline. He is scheduled for hip surgery near the end of November. Has had spinal surgery which needs revision according to patient. No other needs at this time. Date Signed: 10/19/2017 04:05 PM Electronically Signed By:Sharmila Mosley LCSW Intervention Information
--- NOTE | 2017-10-20 01:32 | GDS ---
[f rep st] DISCHARGE SUMMARY DISCHARGE DIAGNOSES: 1. Conversion disorder. 2. Possible stroke, status post tPA. 3. Possible seizure disorder, suspect pseudoseizures. 4. Chronic obstructive pulmonary disease with chronic respiratory failure, 2 L. 5. Chronic kidney disease with hyperkalemia. 6. Hypertension. 7. Hyperlipidemia. 8. Obesity, BMI 38. HISTORY: The patient is a 61-year-old male with a vague history of a previous stroke and previous se izure disorder, presenting with left-sided clenched hand, numbness, and speech changes. Arturo hernández evaluated in the emergency room and recommended tPA, which was administered. Followup head CT was without bleed. Followup neurology consultation with Dr. Arias the next day revealed a very no norganic neurologic examination, and Dr. Arias felt very strongly that this was a conversion disord er and there never was a stroke. He also feels his history of seizures is more consistent with pseud oseizures. The patient and his took this very hard regarding the diagnosis of conversion disord er. I did offer them MRI for confirmation given his ongoing neurologic symptoms; however, they decli iram. He was evaluated by PT/OT prior to discharge and felt to be at baseline. For general stroke pr evention, I did start him on a daily aspirin and increased his Lipitor to get his goal LDL less than 70. Incidentally noted on presentation was a creatinine elevation above baseline, as well as hyperkalemia . He presented on both losartan and spironolactone. Both of these medications were held. I think t hey should probably be held indefinitely. Blood pressure is a little elevated, so I substituted Norv asc 5 mg p.o. daily at the time of discharge. DISCHARGE MEDICATIONS: New medications: 1. Aspirin 81 mg p.o. daily. 2. Norvasc 5 mg p.o. daily. 3. Atorvastatin increased to 40 mg p.o. daily. Discontinued medications: 1. Spironolactone 25 mg p.o. daily. 2. Losartan 50 mg p.o. daily. ADDITIONAL DISCHARGE INSTRUCTIONS: 1. Please see primary care regarding outpatient mental health referral regarding conversion disorder . 2. Follow up with primary care regarding further hypertension management. Greater than 30 minutes' time was spent arranging this discharge. Patient was seen and examined by yana max on the day of discharge. /[id number]/MODL
[2017-10-20 01:55] LABS: HEMOGLOBIN A1C 6.1 % (4.0-6.0)
== END 2017-10-19 13:54 | disposition home or self-care (01) | DRG 880 ==
LOC: CED 14:58 → CEDHOLD 16:02 → F2N 17:07
PROVIDERS: ADMIT Hospitalist; ATTEND Internal Medicine
DX: F44.4 Conversion disorder with motor symptom or deficit (principal); I63.9 Cerebral infarction, unspecified; R29.703 NIHSS score 3; E87.6 Hypokalemia; I12.9 Hypertensive chronic kidney disease with stage 1 through stage 4 chronic kidney disease, or unspecified chronic kidney disease; N18.9 Chronic kidney disease, unspecified; E78.5 Hyperlipidemia, unspecified; K21.9 Gastro-esophageal reflux disease without esophagitis; E66.9 Obesity, unspecified; Z68.38 Body mass index [BMI] 38.0-38.9, adult; J44.9 Chronic obstructive pulmonary disease, unspecified; J96.90 Respiratory failure, unspecified, unspecified whether with hypoxia or hypercapnia; Z99.81 Dependence on supplemental oxygen; Z86.73 Personal history of transient ischemic attack (TIA), and cerebral infarction without residual deficits; R56.9 Unspecified convulsions; Z87.891 Personal history of nicotine dependence
CPT/HCPCS: 70450-PO; 70496-PO; 70498-PO; 71010-PO; 80048-PO; 80305; 82248-PO; 82947-QW; 83690-PO; 83735-PO; 83880-PO; 84484-PO; 85025-PO; 85378-PO; 85610-PO; 85730-PO; 92526-GN; 92610-GN; 97161-GP; 97165-GO; 97530-GP; J2997; Q9967

== ENCOUNTER → 2018-08-05 | Outpatient (CLI) | payer OTHER | LOC: CIMAGING 13:50 | PROVIDERS: ATTEND Family Medicine | DX: R09.89 Other specified symptoms and signs involving the circulatory and respiratory systems (principal) | CPT/HCPCS: 71046-PO ==

== ENCOUNTER → 2018-08-27 | Outpatient (CLI) | payer OTHER | LOC: CIMAGING 15:34 | PROVIDERS: ATTEND Family Medicine | DX: R05 Cough (principal); R53.1 Weakness; R53.83 Other fatigue; R91.8 Other nonspecific abnormal finding of lung field; M51.34 Other intervertebral disc degeneration, thoracic region | CPT/HCPCS: 71046-PO ==

== ENCOUNTER → 2018-12-22 | Outpatient (CLI) | payer OTHER | LOC: CIMAGING 12:35 | PROVIDERS: ATTEND Family Medicine | DX: R06.02 Shortness of breath (principal); J40 Bronchitis, not specified as acute or chronic | CPT/HCPCS: 71046-PO ==

== ENCOUNTER → 2019-02-24 | Outpatient (CLI) | payer OTHER | LOC: CLAB 13:33 → CIMAGING 13:35 | DX: M25.511 Pain in right shoulder (principal) ==